=== PATIENT | female | born 1965 | race Asian ===

== ENCOUNTER 2016-11-08 17:34 | Inpatient (IN) | payer OTHER ==
[~2016-11-08] VITALS: Ht 152.4 cm; Wt 46.0 kg
[2016-11-08] MEDS ORDERED: AZO95TAB PO (17:51)
[2016-11-08] MEDS ORDERED: [UNRECOGNIZED DRUG - OTHER] (17:51)
[2016-11-08] MEDS ORDERED: EFFE150C PO (17:51)
[2016-11-08] MEDS ORDERED: CLON1TAB PO (17:51)
[2016-11-08] MEDS ORDERED: NS 1,000 ML IV ONE (18:15)
[2016-11-08] MEDS ORDERED: IBUPROFEN 400 MG TAB PO ONE (18:15)
[2016-11-08 18:45] LABS: BASO % 0.5 % (0.0-1.0); EOS % 0.5 % (0.0-3.0); LARGE UNSTAINED CELL # 0.2 K/mm3 (0.0-0.4); LARGE UNSTAINED CELL % 3.1 % (0.0-4.0); LYMPH # 0.8 K/mm3 (1.5-4.5); MEAN CORPUSCULAR HEMOGLOBIN 30.2 pg (27.0-33.0); MEAN CORPUSCULAR HGB CONC 31.2 g/dl (32.0-36.5); MEAN CORPUSCULAR VOLUME 96.8 fl (80.0-96.0); MONO # 0.4 K/mm3 (0.0-0.8); MONO % 4.6 % (0.0-5.0); NEUTROPHILS # 6.3 K/mm3 (1.8-7.7); NEUTROPHILS % 81.2 % (36.0-66.0); PLATELET COUNT, AUTOMATED 292 k/mm3 (150-450); RED CELL DISTRIBUTION WIDTH 12.4 % (11.5-14.5); WHITE BLOOD COUNT 7.7 K/mm3 (4.0-10.0)
[2016-11-08 18:50] LABS: INR 0.83
[2016-11-08 18:59] LABS: ALBUMIN 3.1 GM/DL (3.2-5.2); ALBUMIN/GLOBULIN RATIO 0.6 (1.00-1.93); BILIRUBIN,DIRECT 0.1 MG/DL (0.0-0.2); BILIRUBIN,TOTAL 0.3 MG/DL (0.2-1.0); CALCIUM LEVEL 8.6 MG/DL (8.5-10.1); CREATININE FOR GFR 1.23 MG/DL (0.55-1.02); GLOMERULAR FILTRATION RATE 49.4 (>58); POTASSIUM SERUM 3.7 MEQ/L (3.5-5.1); TOTAL PROTEIN 8.3 GM/DL (6.4-8.2)
[2016-11-08] MEDS ORDERED: cefTRIAXone SOD 1 GM in D5W MINI-BAG PLUS 50 ML IV ONE (19:30)
[2016-11-08 19:38] LABS: ERYTHROCYTE SEDIMENTATION RATE 70 mm/hr (0-20)
[2016-11-08] MEDS ORDERED: ISOVUE-370 76% 100ML VIAL (Q9967) As Ordered ONE (20:04)
[2016-11-08] MEDS ORDERED: ACETAMINOPHEN 325 MG TAB PO ONE (20:30)
--- NOTE | 2016-11-08 21:30 | REPUSA ---
CLINICAL HISTORY: Abdominal pain. TECHNIQUE: Multiple axial, sagittal and coronal CT images were obtained through the abdomen and pelvi s after administration of intravenous contrast material. COMMENTS: The liver is of uniform attenuation without mass or defect. There is no intra or extrahepatic biliary ductal dilatation. The spleen is normal. The gallbladder is within normal limits. The pancreas is of normal contour and attenuation characteristics. There is no evidence of adrenal mass. Striated right nephrogram is noted compatible with pyelonephritis. The kidneys are normal in size, s hape and configuration. There is no evidence of renal or ureteral mass. No renal or ureteral calculi are identified. There is no hydroureter or hydronephrosis. No evidence for appendicitis. There is wall thickening noted involving all small bowel segments comp atible with ileitis. No evidence for small or large bowel obstruction. There is no evidence of abdomi nal ascites or lymphadenopathy. There is no evidence of intrinsic or extrinsic bladder mass. There is no pelvic ascites or lymphadeno mark. The uterus and ovaries are grossly unremarkable. Images of the lung bases show no evidence of pleural or parenchymal mass. There are no pleural effusi ons. The bony structures are free of lytic or blastic lesions. IMPRESSION: Striated right nephrogram is noted compatible with pyelonephritis. Enteritis. Consider follow up with colonoscopy. Thank you for your kind referral of this patient.
[2016-11-08] MEDS: NS 1,000 ML IV SCH (22:01)
[2016-11-08] MEDS ORDERED: CLON2TAB PO (22:42)
[2016-11-08] MEDS ORDERED: QUET1TAB10 PO (22:42)
[2016-11-08] MEDS ORDERED: SERO1TAB PO (22:46)
[2016-11-08] MEDS ORDERED: SODIUM CHLORIDE IV ONE (23:15)
--- NOTE | 2016-11-09 00:13 | HPEPDOC ---
General Date of Admission Nov 08, 2016 at 21:51 Attending Physician: QUINTIN SANCHEZ MD Chief Complaint The patient is a 50-year-old female admitted with a reason for visit of Pyelonephritis;Sepsis. Source: Patient, RN notes reviewed Exam Limitations: No limitations Timing/Duration: Day(s) (symptoms began last Friday) Associated Symptoms: Diaphoresis, Fever, Chills, Headaches, Weakness History of Present Illness Ms. Lewis is a 50-year-old female who presents to [facility] 's emergency department with dysuria and diarrhea. Patient is a permanent resident of [place]. She is up in [place] visiting her adult daughter. Past medical history significant for anxiety/depression and bipolar disorder. Patient states that she few into [place] last Friday and developed symptoms of dysuria and urinary frequency. She states that she notes no blood in her urine. She has tried Azo which has turned her urine red. She admits to body shakes, chills, feeling hot, feeling sweaty. She's increased her fluid intake. Describes an achy pain on her right flank. Pain 8/10, currently 6/10. Denies nausea and vomiting. Admits to 2 episodes of watery, nonbloody, nonmucoid diarrhea. States that her flank pain improved after stooling. Admits to a left temporal headache, but denies acute vision and/or hearing changes. Admits to weakness without dizziness or lightheadedness. Patient denies sore throat, chest pain, palpitations, shortness of breath, paroxysmal nocturnal dyspnea, swelling in an extremity, numbness and/or tingling in extremities, feelings of confusion, dizziness, lightheadedness, melena, hematochezia. Hospital service was consulted and patient was subsequently admitted for further medical management. Home Medications Scheduled Clonazepam (Clonazepam) 2 Mg Tab 2 MG PO DAILY (Reported) Phenazopyridine HCl (Azo Tabs) 95 Mg Tab 95 MG PO DAILY (Reported) Quetiapine Fumerate (Seroquel) 100 Mg Tab 200 MG PO DAILY (Reported) Venlafaxine Hydrochloride (Effexor Xr) 150 Mg Cap 150 MG PO DAILY (Reported) Allergies Coded Allergies: Propoxyphene (Verified Allergy, Unknown, 11/08/16) Past Medical History Medical History 1. Anxiety/depression 2. Bipolar disorder Surgical History 1. 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 Domestic travel only Admits to dogs in the home Denies environmental exposures 2 adult children: One son in the [employer] in [place] and one adult daughter in [place], [place] Review of Symptoms Constitutional: Reports: Chills, Fever, Night Sweats, Weakness Eyes: Reports: Other (denies acute changes to vision, including blurriness, diplopia, acute transient vision loss) ENT: Reports: Head Aches (left temporal region), Denies: Sinus Congestion, Sore Throat Skin: Denies: Lesions, Rash Pulmonary: Denies: Cough, Dyspnea, Pleuritic Chest Pain Cardiovascular: Denies: Chest Pain, Edema, Lt Headedness, Orthopnea, Palpitations, Paroxysmal Noc. Dyspnea Gastrointestinal: Reports: Abdominal Pain (right flank), Diarrhea, Vomiting, Denies: Nausea Genitourinary: Reports: Dysuria, Frequency, Denies: Hematuria, Incontinence Hematologic: Denies: Bruising Musculoskeletal: Reports: Back Pain (right flank), Denies: Joint Pain, Muscle Pain Neurological: Reports: Weakness, Denies: Confusion, Numbness Psych: Reports: Anxiety, Depression Physical Examination General Exam: Positive: Alert, Cooperative, No Acute Distress Eye Exam: Positive: Conjunctiva & lids normal, EOMI, PERRLA, Negative: Sclera icteric ENT Exam: Positive: Atraumatic, Mucous membr. moist/pink, Nares Patent, Pharynx Normal, Tongue Midline Neck Exam: Positive: Other (trachea midline), Supple, Negative: JVD, Lymphadenopathy, thyromegaly Chest Exam: Positive: Clear to auscultation, Normal air movement Heart Exam: Positive: Normal S1, Normal S2, Rate Normal, Regular Rhythm, Tachycardic, Negative: Murmurs, Rubs Abdomen Exam: Positive: Normal bowel sounds, Other (/), Soft, Negative: Hepatospenomegaly, Tenderness (nontender to palpation) Extremity Exam: Positive: Normal pulses, Negative: Clubbing, Cyanosis, Edema, Swelling, Tenderness Skin Exam: Positive: Nl turgor and temperature Neuro Exam: Positive: Cranial Nerves 3-12 NL, Normal Speech, Strength at 5/5 X4 ext Psych Exam: Positive: Oriented x [address] of the abdomen and pelvis with IV contrast only COMMENTS: The liver is of uniform attenuation without mass or defect. There is no intra-or extrahepatic biliary ductal dilatation. The spleen is normal. The gallbladder is within normal limits. The pancreas is of normal contour and attenuation characteristics. There is no evidence of adrenal mass. Striated right nephrogram is noted compatible with pyelonephritis. The kidneys are normal in size, shape and configuration. There is no evidence of renal or ureteral mass. No renal or ureteral calculi identified. There is no hydroureter or hydronephrosis. No evidence for appendicitis. There is wall thickening noted involving all small bowel segments compatible with ileitis. No evidence of small or large bowel obstruction. There is no evidence of abdominal ascites or lymphadenopathy. Was no evidence of intrinsic or extrinsic bladder mass. There is no pelvic ascites or lymphadenopathy. Uterus and ovaries are grossly unremarkable. Images of the lung bases show no evidence of pleural parenchymal mass. There are no pleural effusions. The bony structures a free of lytic or blastic lesions. IMPRESSION: Striated right nephrogram is noted compatible with pyelonephritis. Enteritis. Consider follow-up colonoscopy. Vital Signs T 99 HR 107 RR 18 BP 142/84 O2 96% RA Height (in): 60 Weight (kg): 43.091 BMI (kg): 18.6 Laboratory Data Labs 24H Laboratory Tests 2 11/08/16 18:14: 11/08/16 18:17: Activated Partial Thromboplast Time 28.8, Aspartate Amino Transf (AST/SGOT) 168H , Alanine Aminotransferase (ALT/SGPT) 186H, Alkaline Phosphatase 307H, Total Bilirubin 0.3, Direct Bilirubin 0.1, Albumin 3.1L, Albumin/Globulin Ratio 0.60L , Anion Gap 9, White Blood Count 7.7, Red Blood Count 4.02, Hemoglobin 12.1, Hematocrit 38.9, Mean Corpuscular Volume 96.8H, Mean Corpuscular Hemoglobin 30.2 , Mean Corpuscular Hemoglobin Concent 31.2L, Red Cell Distribution Width 12.4, Platelet Count 292, Neutrophils (%) (Auto) 81.2H, Lymphocytes (%) (Auto) 10.0L, Monocytes (%) (Auto) 4.6, Eosinophils (%) (Auto) 0.5, Basophils (%) (Auto) 0.5, Neutrophils # (Auto) 6.3, Lymphocytes # (Auto) 0.8L, Monocytes # (Auto) 0.4, Eosinophils # (Auto) 0.0, Basophils # (Auto) 0.0, C-Reactive Protein, Quantitative 14.90H, Calcium Level 8.6, Erythrocyte Sedimentation Rate 70H, Glomerular Filtration Rate 49.4L, Lactic Acid (Sepsis) 2.3*H, Large Unclassified Cells # 0.2, Large Unclassified Cells % 3.1, Prothromb Time International Ratio 0.83, Prothrombin Time 11.5L, Total Protein 8.3H 11/08/16 19:53: Urine Amorphous Sediment , Urine Appearance HAZY, Urine Color JESUS, Urine pH 6.0, Urine Specific [place] 1.013, Urine Protein NEGATIVE, Urine Glucose (UA) NEGATIVE, Urine Ketones NEGATIVE, Urine Urobilinogen 4.0H, Urine Bilirubin NEGATIVE, Urine Leukocyte Esterase 2+H, Urine Bacteria (Auto) 2+H, Urine Blood 3 +H, Urine Calcium Carbonate Cryst(Auto) , Urine Calcium Oxalate Cryst (Auto) , Urine Calcium Phosphate Jennifer (Auto) , Urine Cellular Casts , Urine Cystine Crystals , Urine Granular Casts (Auto) , Urine Hyaline Casts (Auto) 0, Urine Leucine Crystals , Urine Mucus (Auto) SMALL, Urine Nitrite POSITIVE, Urine Oval Fat Bodies (Auto) , Urine RBC (Auto) TNTCH, Urine Renal Epithelial Cells , Urine Sperm (Auto) , Urine Squamous Epithelial Cells 2, Urine Transitional Epithelial Cells , Urine Trichomonas (Auto) , Urine Triple Phosphate Cryst (Auto ) , Urine Tyrosine Crystals , Urine Uric Acid Crystals (Auto) , Urine WBC (Auto ) 76H, Urine Waxy Casts (Auto) , Urine Yeast-Like Cells (Auto) 11/08/16 22:43: Lactic Acid Followup at 4 Hours 0.7 CBC/BMP Laboratory Tests 11/08/16 18:17 Red Blood Count 4.02, Mean Corpuscular Volume 96.8 H, Mean Corpuscular Hemoglobin 30.2, Mean Corpuscular Hemoglobin Concent 31.2 L, Red Cell Distribution Width 12.4, Neutrophils (%) (Auto) 81.2 H, Lymphocytes (%) (Auto) 10.0 L, Monocytes (%) (Auto) 4.6, Eosinophils (%) (Auto) 0.5, Basophils (%) ( Auto) 0.5, Neutrophils # (Auto) 6.3, Lymphocytes # (Auto) 0.8 L, Monocytes # ( Auto) 0.4, Eosinophils # (Auto) 0.0, Basophils # (Auto) 0.0 Microbiology Microbiology 11/08/16 Blood Culture, Received Pending 11/08/16 Urine Culture, Received Pending RAD Interpretation STUDY: CT of the abdomen and pelvis with IV contrast only Rad Actions: Report Reviewed (striated right nephrogram is noted compatible with pyelonephritis. Enteritis. Consider follow-up colonoscopy.) Assessment/Plan This is a 50-year-old female who presents with dysuria and diarrhea subsequently found to have urinary tract infection on urinalysis and meeting criteria for sepsis as well as possible ileitis/enteritis on CT of the abdomen and pelvis. Problems (1) Sepsis Status: Acute Problem Text: On presentation patient was febrile, tachycardic with a lactic acid of 2.3 and an underlying urinary tract infection Tylenol for fever Monitor vital signs Repeat lactic acid level in 4 hours Obtain urine culture Empirically treat with ceftriaxone Administer bolus of 1293 mL of normal saline Maintenance fluids of normal saline at 100 mL per hour Obtain blood cultures Nothing by mouth (2) Pyelonephritis Status: Acute Problem Text: BUN and creatinine are 12 and 1.23, respectively CT scan noted striated right nephrogram that is compatible with pyelonephritis Urinalysis positive for urinary tract infection Remain nothing by mouth for the time being Empirically cover with ceftriaxone Obtain urine culture (3) Diarrhea Status: Acute Problem Text: Nothing by mouth GI panel Empirically cover with ceftriaxone (4) Transaminitis Status: Acute Problem Text: CT findings reported no abnormalities with liver, gallbladder, pancreas AST and ALT are 168 and 186, respectively Alkaline phosphatase is 307 Obtain hepatitis panel According to Up-to-Date, Effexor has a less than 1% incidence of causing hepatic effects, including elevated liver enzyme levels Plan / VTE VTE Prophylaxis Ordered?: Yes (TEDs and sequentials) Plan Plan Sepsis Patient meets sepsis criteria (febrile, tachycardic, lactic acidosis, source of infection). Patient's temperature treated with Tylenol. Heart rate will be monitored with vital signs every 4 hours. Repeat lactic acid level will be drawn in 4 hours. Patient will remain nothing by mouth for the time being. She will receive a bolus of normal saline of 1293 mL. Maintenance fluids will be run at 100 mL per hour. Empirically treat with ceftriaxone. Obtain urine and blood cultures. Pyelonephritis BUN and creatinine are 12 and 1.23, perspective. Patient does not report underlying kidney disease. Based on urinalysis patient has urinary tract infection. Urine culture will be obtained. CT of the abdomen and pelvis reveals pyelonephritis. Will empirically treat with ceftriaxone. Nothing by mouth for the time being. Monitor CMP. Diarrhea Patient had 2 episodes of watery, nonbloody, nonmucoid diarrhea. We'll keep patient nothing by mouth at this time. Obtain GI panel. Monitor CMP. Empirically treat with ceftriaxone. Transaminitis AST and ALT were 168 and 186, respectively. Alkaline phosphatase is 307. Patient does not report a history of liver pathology. CT scan reveals no abnormalities with the liver, gallbladder, pancreas. There is a mention of small bowel wall thickening compatible with ileitis/enteritis. Obtain hepatitis profile. Keep patient nothing by mouth at this time. Monitor with CMP. One of patient's home medications (Effexor) has a less than 1% incidence of having abnormal hepatic effects. Disposition Admit to medical surgical unit Anticipated hospitalization: 2 nights Attending: Dr. Cruz IVF: Initiate (bolus of 1293 mL followed by maintenance of 100 mL per hour) Diet: Make NPO Activity: Bedrest (with commode privileges) Diagnostics: Check Labs, Repeat Labs in AM, Obtain Cultures Anticipated Discharge: Home ALEXSANDRA HERNANDEZ Nov 08, 2016 23:40
[2016-11-09 00:30] VITALS: BP 115/59
[2016-11-09] MEDS: ACETAMINOPHEN TAB 650MG DOSE (2X325MG) PO PRN ×2 (02:42→06:58)
[2016-11-09] MEDS ORDERED: ASPIRIN 325 MG TAB PO ONE (04:15)
[2016-11-09 06:00] VITALS: BP 115/64
[2016-11-09 06:58] LABS: MEAN CORPUSCULAR HEMOGLOBIN 30.7 pg (27.0-33.0); MEAN CORPUSCULAR HGB CONC 31.9 g/dl (32.0-36.5); RED CELL DISTRIBUTION WIDTH 12.5 % (11.5-14.5); WHITE BLOOD COUNT 9.1 K/mm3 (4.0-10.0)
[2016-11-09 07:11] LABS: ANION GAP 9 MEQ/L (8-16); BLOOD UREA NITROGEN 7 MG/DL (7-18); CARBON DIOXIDE LEVEL 24 MEQ/L (21-32); CHLORIDE LEVEL 106 MEQ/L (98-107); CREATININE FOR GFR 0.83 MG/DL (0.55-1.02); GLOMERULAR FILTRATION RATE > 60.0 (>58); GLUCOSE, FASTING 94 MG/DL (70-105); POTASSIUM SERUM 3.7 MEQ/L (3.5-5.1); SODIUM LEVEL 139 MEQ/L (136-145)
[2016-11-09 07:12] LABS: ALBUMIN 2.4 GM/DL (3.2-5.2); ALBUMIN/GLOBULIN RATIO 0.59 (1.00-1.93); ALKALINE PHOSPHATASE 253 U/L (45-117); ALT/SGPT 127 U/L (12-78); AST/SGOT 100 U/L (15-37); BILIRUBIN,TOTAL 0.5 MG/DL (0.2-1.0); CALCIUM LEVEL 7.7 MG/DL (8.5-10.1); TOTAL PROTEIN 6.5 GM/DL (6.4-8.2)
[2016-11-09] MEDS ORDERED: cefTRIAXone SOD 2 GM in D5W MINI-BAG PLUS 50 ML IV SCH (08:00)
[2016-11-09] MEDS: VENLAFAXINE **XR** 75MG CAPSULE PO SCH (09:00)
[2016-11-09] MEDS: QUEtiapine FUMARATE 100 MG TAB PO SCH (09:52)
[2016-11-09] MEDS: NS 1,000 ML IV SCH ×2 (09:52→17:51)
[2016-11-09] MEDS: clonazePAM 1 MG TAB PO SCH (09:53)
[2016-11-09 10:00] VITALS: BP 120/70
[2016-11-09] MEDS: IBUPROFEN 400 MG TAB PO PRN (12:39)
--- NOTE | 2016-11-09 12:59 | IPNPDOC ---
Subjective Date Seen The patient was seen on 11/09/16. Subjective Chief Complaint/HPI The patient is a 50-year-old female admitted with a reason for visit of Pyelonephritis;Sepsis. Events since last encounter pt seen and examined doing well, still febrile, states her pain is still there Objective Physical Examination General Exam: Positive: Alert, Cooperative, No Acute Distress Eye Exam: Positive: Conjunctiva & lids normal, EOMI, PERRLA, Negative: Sclera icteric ENT Exam: Positive: Atraumatic, Mucous membr. moist/pink, Nares Patent, Pharynx Normal, Tongue Midline Neck Exam: Positive: Other (trachea midline), Supple, Negative: JVD, Lymphadenopathy, thyromegaly Chest Exam: Positive: Clear to auscultation, Normal air movement Heart Exam: Positive: Normal S1, Normal S2, Rate Normal, Regular Rhythm, Tachycardic, Negative: Murmurs, Rubs Abdomen Exam: Positive: Normal bowel sounds, Other (/), Soft, Negative: Hepatospenomegaly, Tenderness (nontender to palpation) Extremity Exam: Positive: Normal pulses, Negative: Clubbing, Cyanosis, Edema, Swelling, Tenderness Skin Exam: Positive: Nl turgor and temperature Neuro Exam: Positive: Cranial Nerves 3-12 NL, Normal Speech, Strength at 5/5 X4 ext Psych Exam: Positive: Oriented x 3 Assessment /Plan Problems (1) Sepsis Status: Acute Problem Text: * still fevers * lactic acidosis resolved, blood pressure is stable * continue IV fluids at a rate of 100cc/hr * (2) Pyelonephritis Status: Acute Problem Text: BUN and creatinine are 12 and 1.23, respectively CT scan noted striated right nephrogram that is compatible with pyelonephritis Urinalysis positive for urinary tract infection Remain nothing by mouth for the time being Empirically cover with ceftriaxone Obtain urine culture (3) Diarrhea Status: Acute Problem Text: Nothing by mouth GI panel Empirically cover with ceftriaxone (4) Transaminitis Status: Acute Problem Text: CT findings reported no abnormalities with liver, gallbladder, pancreas AST and ALT are 168 and 186, respectively Alkaline phosphatase is 307 Obtain hepatitis panel According to Up-to-Date, Effexor has a less than 1% incidence of causing hepatic effects, including elevated liver enzyme levels Plan/VTE VTE Prophylaxis Ordered?: Yes (TEDs and sequentials) Plan IVF: Initiate (bolus of 1293 mL followed by maintenance of 100 mL per hour) Diet: Make NPO Activity: Bedrest (with commode privileges) Diagnostics: Check Labs, Repeat Labs in AM, Obtain Cultures Anticipated Discharge: Home VS, I&O, 24H, Mary Vital Signs/I&O Vital Signs Date Time Temp Pulse Resp B/P Pulse Ox O2 Delivery O2 Flow Rate FiO2 11/09/16 10:00 98.6 11/09/16 06:00 107 20 115/64 94 Room Air I&O- Last 24 Hours up to 6 AM 11/09/16 06:00 Intake Total 0 ml Output Total 0 ml Balance 0 ml Laboratory Data 24H LABS Laboratory Tests 2 11/08/16 18:14: 11/08/16 18:17: Activated Partial Thromboplast Time 28.8, Aspartate Amino Transf (AST/SGOT) 168H , Alanine Aminotransferase (ALT/SGPT) 186H, Alkaline Phosphatase 307H, Total Bilirubin 0.3, Direct Bilirubin 0.1, Albumin 3.1L, Albumin/Globulin Ratio 0.60L , Anion Gap 9, White Blood Count 7.7, Red Blood Count 4.02, Hemoglobin 12.1, Hematocrit 38.9, Mean Corpuscular Volume 96.8H, Mean Corpuscular Hemoglobin 30.2 , Mean Corpuscular Hemoglobin Concent 31.2L, Red Cell Distribution Width 12.4, Platelet Count 292, Neutrophils (%) (Auto) 81.2H, Lymphocytes (%) (Auto) 10.0L, Monocytes (%) (Auto) 4.6, Eosinophils (%) (Auto) 0.5, Basophils (%) (Auto) 0.5, Neutrophils # (Auto) 6.3, Lymphocytes # (Auto) 0.8L, Monocytes # (Auto) 0.4, Eosinophils # (Auto) 0.0, Basophils # (Auto) 0.0, C-Reactive Protein, Quantitative 14.90H, Calcium Level 8.6, Erythrocyte Sedimentation Rate 70H, Glomerular Filtration Rate 49.4L, Lactic Acid (Sepsis) 2.3*H, Large Unclassified Cells # 0.2, Large Unclassified Cells % 3.1, Prothromb Time International Ratio 0.83, Prothrombin Time 11.5L, Total Protein 8.3H 11/08/16 19:53: Urine Amorphous Sediment , Urine Appearance HAZY, Urine Color JESUS, Urine pH 6.0, Urine Specific [place] 1.013, Urine Protein NEGATIVE, Urine Glucose (UA) NEGATIVE, Urine Ketones NEGATIVE, Urine Urobilinogen 4.0H, Urine Bilirubin NEGATIVE, Urine Leukocyte Esterase 2+H, Urine Bacteria (Auto) 2+H, Urine Blood 3 +H, Urine Calcium Carbonate Cryst(Auto) , Urine Calcium Oxalate Cryst (Auto) , Urine Calcium Phosphate Jennifer (Auto) , Urine Cellular Casts , Urine Cystine Crystals , Urine Granular Casts (Auto) , Urine Hyaline Casts (Auto) 0, Urine Leucine Crystals , Urine Mucus (Auto) SMALL, Urine Nitrite POSITIVE, Urine Oval Fat Bodies (Auto) , Urine RBC (Auto) TNTCH, Urine Renal Epithelial Cells , Urine Sperm (Auto) , Urine Squamous Epithelial Cells 2, Urine Transitional Epithelial Cells , Urine Trichomonas (Auto) , Urine Triple Phosphate Cryst (Auto ) , Urine Tyrosine Crystals , Urine Uric Acid Crystals (Auto) , Urine WBC (Auto ) 76H, Urine Waxy Casts (Auto) , Urine Yeast-Like Cells (Auto) 11/08/16 22:43: Lactic Acid Followup at 4 Hours 0.7 11/09/16 05:54: Blood Urea Nitrogen 7, Creatinine 0.83, Sodium Level 139, Potassium Level 3.7, Chloride Level 106, Carbon Dioxide Level 24, Calcium Level 7.7L, Aspartate Amino Transf (AST/SGOT) 100H, Alanine Aminotransferase (ALT/SGPT) 127H, Alkaline Phosphatase 253H, Total Bilirubin 0.5#, Total Protein 6.5#, Albumin 2.4 #L, Albumin/Globulin Ratio 0.59L, Anion Gap 9, Glomerular Filtration Rate > 60.0 CBC/BMP Laboratory Tests 11/08/16 18:17 Red Blood Count 4.02, Mean Corpuscular Volume 96.8 H, Mean Corpuscular Hemoglobin 30.2, Mean Corpuscular Hemoglobin Concent 31.2 L, Red Cell Distribution Width 12.4, Neutrophils (%) (Auto) 81.2 H, Lymphocytes (%) (Auto) 10.0 L, Monocytes (%) (Auto) 4.6, Eosinophils (%) (Auto) 0.5, Basophils (%) ( Auto) 0.5, Neutrophils # (Auto) 6.3, Lymphocytes # (Auto) 0.8 L, Monocytes # ( Auto) 0.4, Eosinophils # (Auto) 0.0, Basophils # (Auto) 0.0 11/09/16 05:54 Red Blood Count 3.46 L, Mean Corpuscular Volume 96.0, Mean Corpuscular Hemoglobin 30.7, Mean Corpuscular Hemoglobin Concent 31.9 L, Red Cell Distribution Width 12.5, Calcium Level 7.7 L, Aspartate Amino Transf (AST/SGOT) 100 H, Alanine Aminotransferase (ALT/SGPT) 127 H, Alkaline Phosphatase 253 H, Total Bilirubin 0.5 #, Total Protein 6.5 #, Albumin 2.4 #L Microbiology Microbiology 11/08/16 Blood Culture, Received Pending 11/08/16 Urine Culture, Received Pending ARIADNE CURRY DO Nov 09, 2016 12:59
[2016-11-09 14:00] VITALS: BP 115/73
[2016-11-09 22:00] VITALS: BP 137/85
[2016-11-10] MEDS: IBUPROFEN 400 MG TAB PO PRN (01:46)
[2016-11-10] MEDS: NS 1,000 ML IV SCH (03:51)
[2016-11-10 06:00] VITALS: BP 110/77
[2016-11-10 06:55] LABS: MEAN CORPUSCULAR HEMOGLOBIN 31.1 pg (27.0-33.0); MEAN CORPUSCULAR HGB CONC 31.7 g/dl (32.0-36.5); RED CELL DISTRIBUTION WIDTH 12.6 % (11.5-14.5); WHITE BLOOD COUNT 9.9 K/mm3 (4.0-10.0)
[2016-11-10 07:11] LABS: ALBUMIN 2.2 GM/DL (3.2-5.2); ALBUMIN/GLOBULIN RATIO 0.56 (1.00-1.93); ALKALINE PHOSPHATASE 290 U/L (45-117); ALT/SGPT 106 U/L (12-78); ANION GAP 8 MEQ/L (8-16); AST/SGOT 89 U/L (15-37); BILIRUBIN,TOTAL 0.4 MG/DL (0.2-1.0); BLOOD UREA NITROGEN 4 MG/DL (7-18); CALCIUM LEVEL 7.7 MG/DL (8.5-10.1); CARBON DIOXIDE LEVEL 25 MEQ/L (21-32); CHLORIDE LEVEL 110 MEQ/L (98-107); CREATININE FOR GFR 0.86 MG/DL (0.55-1.02); GLOMERULAR FILTRATION RATE > 60.0 (>58); GLUCOSE, FASTING 108 MG/DL (70-105); POTASSIUM SERUM 4.3 MEQ/L (3.5-5.1); SODIUM LEVEL 143 MEQ/L (136-145); TOTAL PROTEIN 6.1 GM/DL (6.4-8.2)
[2016-11-10] MEDS ORDERED: CEFDINIR 300 MG CAP (OMNICEF) PO SCH (09:00)
[2016-11-10] MEDS: QUEtiapine FUMARATE 100 MG TAB PO SCH (09:29)
[2016-11-10] MEDS: clonazePAM 1 MG TAB PO SCH (09:30)
[2016-11-10] MEDS: VENLAFAXINE **XR** 75MG CAPSULE PO SCH (09:30)
[2016-11-10] MEDS ORDERED: CEFD300CAP PO (12:34)
--- NOTE | 2016-11-10 16:49 | DSES ---
DATE OF ADMISSION: 11/08/2016 DATE OF DISCHARGE: 11/10/2016 REASON FOR ADMISSION: Sepsis secondary to urinary tract infection (UTI). PRIMARY CARE PROVIDER: None. Patient is visiting from [place]. FINAL DIAGNOSES: 1. Pyelonephritis. 2. Sepsis secondary to pyelonephritis. 3. History of transaminitis. HISTORY OF PRESENT ILLNESS: The patient is a 50-year-old female with past medical history significant for anxiety, depression, bipolar disorder, presented to the emergency room complaining of urinary symptoms. She stated that she has been having dysuria and diarrhea. She had no primary care provider to followup with and she presented to the emergency room. She admits to having shakes and chills, feeling hot and sweaty, decreased fluid intake. She describes as having aching pain in her right flank, 8/10. Denied any nausea or vomiting. She was admitted under hospitalist service. HOSPITAL COURSE: Patient was admitted and CT scan was positive for right pyelonephritis and neuritis. Patient was started on antibiotics, ceftriaxone. She was started on IV fluids. Once she started to tolerate diet, IV fluids were discontinued and cefdinir was started instead of ceftriaxone. She took one dose and was tolerating her diet and antibiotic without any reaction, and she was discharged home the following day. DIET: Regular. ACTIVITY: As tolerated. Patient is to followup with primary care provider in [place] when she goes back. DISCHARGE CONDITION: Stable.
== END 2016-11-10 15:10 | disposition home or self-care (01) | DRG 872 ==
LOC: M ED 18:50 → M ED INP 21:51 → M MS5PR 11-09 00:23
PROVIDERS: ADMIT Internal Medicine; ATTEND Internal Medicine
DX: A41.9 Sepsis, unspecified organism (principal); N10 Acute pyelonephritis; E87.2 Acidosis; F41.9 Anxiety disorder, unspecified; F31.9 Bipolar disorder, unspecified; Z88.8 Allergy status to other drugs, medicaments and biological substances; R19.7 Diarrhea, unspecified; R74.0 Nonspecific elevation of levels of transaminase and lactic acid dehydrogenase [LDH]; Z79.899 Other long term (current) drug therapy

== ENCOUNTER → 2016-11-08 | Outpatient (REF) | payer OTHER ==
[~2016-11-08] MED LIST: AZO95TAB PO; CEFD300CAP PO; CLON1TAB PO; CLON2TAB PO; EFFE150C PO; NS 1,000 ML IV SCH; QUET1TAB10 PO; SERO1TAB PO; [UNRECOGNIZED DRUG - OTHER]; cefTRIAXone SOD 2 GM in D5W MINI-BAG PLUS 50 ML IV SCH
== END ==
LOC: M LAB REF 19:47
PROVIDERS: ATTEND Physician Assistant
DX: R10.30 Lower abdominal pain, unspecified (principal)